=== PATIENT | female | born 1960 | race Asian ===

== ENCOUNTER 2019-12-16 01:28 | Emergency (ER) | payer OTHER ==
[~2019-12-16] VITALS: Ht 152.4 cm; Wt 48.1 kg
[2019-12-16 01:33] VITALS: Ht 152.4 cm; Wt 48.1 kg
[2019-12-16 02:12] LABS: BASOPHIL % 0.3 % (0-2); PLATELET COUNT 273 x10^3mcL (130-400); RED CELL DISTRIBUTION WIDTH 13.3 % (11.5-14.5)
[2019-12-16 02:28] LABS: CALCIUM 9.6 mg/dL (8.5-10.1); CARBON DIOXIDE 21.6 mmol/L (21-32); CHLORIDE SERUM 102 mmol/L (98-107); GFR1 > 60 mL/min; GLUCOSE SERUM 148 mg/dL (74-106); POTASSIUM SERUM 3.2 mmol/L (3.5-5.1); SODIUM SERUM 135 mmol/L (136-145)
[2019-12-16 02:33] LABS: ALKALINE PHOSPHATASE 58 U/L (46-116); ALT/SGPT 23 U/L (14-59); AST/SGOT 26 U/L (15-37); BILIRUBIN TOTAL 0.25 mg/dL (0.20-1.00); MAGNESIUM 1.8 mg/dL (1.8-2.4); TOTAL PROTEIN, SERUM 8.7 g/dL (6.4-8.2)
[2019-12-16 04:33] VITALS: BP 132/58
== END 2019-12-16 04:33 | disposition home or self-care (01) ==
LOC: ED 01:28
PROVIDERS: Emergency Medicine
DX: F41.0 Panic disorder [episodic paroxysmal anxiety] (principal); E86.0 Dehydration; R91.1 Solitary pulmonary nodule; F17.210 Nicotine dependence, cigarettes, uncomplicated; E78.00 Pure hypercholesterolemia, unspecified; Z88.0 Allergy status to penicillin; Z20.828 Contact with and (suspected) exposure to other viral communicable diseases
CPT/HCPCS: 83880; J2060; J7030; Q0092